=== PATIENT | male | born 1940 | race Caucasian/White ===

== ENCOUNTER 2021-05-23 11:27 | Emergency (ER) | payer OTHER ==
[~2021-05-23] VITALS: Ht 188 cm; Wt 75.3 kg
[2021-05-23] MEDS ORDERED: COZAAR 25 MG TA25 MG PO (11:45)
[2021-05-23] MEDS ORDERED: SEROQUEL200 MG PO (11:46)
[2021-05-23] MEDS ORDERED: NAMENDA 10 MG T10 MG PO (11:46)
[2021-05-23] MEDS ORDERED: ARICEPT10 M1 PO (11:46)
[2021-05-23] MEDS ORDERED: GLIMEPIRIDE1 MG PO (11:46)
[2021-05-23] MEDS ORDERED: CEPHALEXIN500 MG PO (12:55)
[2021-05-23 13:06] VITALS: BP 137/81
== END 2021-05-23 13:07 | disposition home or self-care (01) ==
LOC: M.ERS 11:27
DX: S92.512A Displaced fracture of proximal phalanx of left lesser toe(s), initial encounter for closed fracture (principal); L03.032 Cellulitis of left toe; I10 Essential (primary) hypertension; E11.9 Type 2 diabetes mellitus without complications; W22.8XXA Striking against or struck by other objects, initial encounter; Y93.89 Activity, other specified; Y92.89 Other specified places as the place of occurrence of the external cause; Y99.8 Other external cause status